=== PATIENT | female | born 1940 | race Caucasian/White ===

== ENCOUNTER 2018-03-08 11:30 | Emergency (ER) | END 2018-03-08 12:18 | disposition home or self-care (01) ==

== ENCOUNTER 2018-04-12 13:04 | Emergency (ER) | END 2018-04-12 16:07 | disposition home or self-care (01) ==

== ENCOUNTER 2018-08-09 19:04 | Emergency (ER) | payer OTHER ==
[~2018-08-09] VITALS: Ht 152.4 cm; Wt 50.3 kg
[~2018-08-09 19:04] MED LIST: ALBU8.5H8 INH; ALPR0.254 PO; AMLO5TAB4 PO; CEPH-443 PO; FAMO20TA18 PO; FLUT16SP17 NASAL; IBUP-1544 PO; PRED20TA PO
[2018-08-09 19:07] VITALS: Ht 152.4 cm; Wt 50.3 kg
[2018-08-09] MEDS ORDERED: SOD CHLORIDE 0.9% 1,000 ML IV STA (19:36)
[2018-08-09] MEDS ORDERED: FAMOTIDINE 20 MG TAB PO STA (19:36)
[2018-08-09] MEDS ORDERED: ONDANSETRON 4 MG INJ IV STA (19:36)
--- NOTE | 2018-08-09 20:52 | ERD ---
ER Documentation Chief Complaint Chief Complaint abdominal pain/diarrhea since yesterday HPI 77-year-old female presenting with complaints of diarrhea for the past 3 days. She also complains of mild epigastric discomfort, though she describes as pressure at times and burning. She does state that she has a lot of acid in her stomach. No bloody stools or melena. No nausea, vomiting, fever, or chills. No recent travel. No recent antibiotic use. Currently she is denying any significant abdominal pain. She is wondering if she needs any antibiotics. Denies any dysuria. She was initially having 6 episodes of diarrhea a day, now she is having about 2. ROS All systems reviewed and are negative except as per history of present illness. Medications Home Meds Active Scripts Famotidine* (Pepcid*) 20 Mg Tablet, 20 MG PO BID for 10 Days, TAB Prov:LINNETTE DONIS MD 08/09/18 Cephalexin* (Keflex*) 500 Mg Capsule, 500 MG PO QID for 5 Days, CAP Prov:AMNA NGUYEN DO 04/12/18 Albuterol Sulfate* (Proair HFA*) 8.5 Gm Hfa.aer.ad, 2 PUFF INH Q4, #1 INHALER Prov:AMNA NGUYEN DO 04/12/18 Prednisone* (Prednisone*) 20 Mg Tab, 60 MG PO DAILY for 5 Days, TAB Prov:AMNA NGUYEN DO 04/12/18 Reported Medications Ibuprofen* (Ibuprofen*) 800 Mg Tablet, 800 MG PO Q8 PRN for NEEDED, TAB 04/12/18 Famotidine* (Famotidine*) 20 Mg Tablet, 20 MG PO BID PRN for NEEDED, #60 TAB 04/12/18 Fluticasone Propionate* (Fluticasone Propionate* Nasal) 50 Mcg/[place] - 16 Gm [place].susp, 1 SPRAY NASAL DAILY, #1 BOTTLE TO EACH NOSTRIL 04/12/18 Alprazolam* (Alprazolam*) 0.25 Mg Tablet, 0.25 MG PO TID PRN for ANXIETY, TAB 04/12/18 Amlodipine Besylate* (Norvasc*) 5 Mg Tablet, 5 MG PO DAILY, TAB 04/12/18 Allergies Allergies: Coded Allergies: ciprofloxacin (Verified Allergy, Severe, 04/12/18) metronidazole (Verified Allergy, Severe, 04/12/18) azithromycin (Verified Allergy, Intermediate, 04/12/18) iodine (Verified Allergy, Intermediate, 04/12/18) sulfamethoxazole (Verified Allergy, Mild, 04/12/18) trimethoprim (Verified Allergy, Mild, 04/12/18) Uncoded Allergies: NITROFURANTOIN MACROCRYSTAL (Allergy, Intermediate, 03/08/18) SHRIMP (Allergy, Mild, ABD PAIN, 06/18/12) PMhx/Soc Medical and Surgical Hx: pt denies Medical Hx, pt denies Surgical Hx History of Surgery: Yes (, CATARACTS BILAT NOVEMBER 2007, UTERINE FIBROID REMOVAL) Anesthesia Reaction: No Hx Neurological Disorder: No Hx Respiratory Disorders: No Hx Cardiac Disorders: Yes (HTN 10 YRS ) Hx Psychiatric Problems: Yes (ANXIETY, DEPRESSION. PO RX, FAM SUPPORT) Hx Miscellaneous Medical Probl: No Hx Alcohol Use: No Hx Substance Use: No Hx Tobacco Use: No Smoking Status: Never smoker FmHx Family History: No diabetes Physical Exam Vitals Vital Signs Date Temp Pulse Resp B/P (MAP) Pulse Ox O2 O2 Flow FiO2 Time Delivery Rate 08/09/18 97.6 88 16 119/64 98 Room Air 21:10 (82) 08/09/18 97.6 88 16 126/74 98 Room Air 20:31 (91) 08/09/18 97.6 80 14 148/78 99 Room Air 19:27 (101) 08/09/18 97.6 97 18 153/72 98 19:07 (99) Physical Exam Const: No acute distress, nontoxic Head: Atraumatic Eyes: Normal Conjunctiva ENT: Normal External Ears, Nose and Mouth. Neck: Full range of motion. No meningismus. Resp: Clear to auscultation bilaterally Cardio: Regular rate and rhythm, no murmurs Abd: Soft, non tender, non distended. No Houston's sign. Negative McBurney's point tenderness. No masses. Normal bowel sounds Skin: No petechiae or rashes Back: No midline or flank tenderness Ext: No cyanosis, or edema Neur: Awake and alert Psych: Normal Mood and Affect Result Diagram: 08/09/18192408/09/181924 Results 24 hrs Laboratory Tests Test 08/09/18 19:25 White Blood Count 6.3 10^3/ul Red Blood Count 3.59 10^6/ul Hemoglobin 11.8 g/dl Hematocrit 33.6 % Mean Corpuscular Volume 93.6 fl Mean Corpuscular Hemoglobin 32.9 pg Mean Corpuscular Hemoglobin Concent 35.1 g/dl Red Cell Distribution Width 12.3 % Platelet Count 236 10^3/UL Mean Platelet Volume 9.1 fl Immature Granulocytes % 0.500 % Nucleated Red Blood Cells % 0.0 /100WBC Immature Granulocytes # 0.030 10^3/ul Sodium Level 136 mmol/L Potassium Level 3.3 mmol/L Chloride Level 93 mmol/L Carbon Dioxide Level 29 mmol/L Anion Gap 14 Blood Urea Nitrogen 25 mg/dl Creatinine 0.91 mg/dl Est Glomerular Filtrat Rate mL/min mL/min Glucose Level 109 mg/dl Calcium Level 10.0 mg/dl Total Bilirubin 1.0 mg/dl Direct Bilirubin 0.00 mg/dl Indirect Bilirubin 1.0 mg/dl Aspartate Amino Transf (AST/SGOT) 288 IU/L Alanine Aminotransferase (ALT/SGPT) 361 IU/L Alkaline Phosphatase 74 IU/L Total Protein 7.9 g/dl Albumin 4.5 g/dl Globulin 3.40 g/dl Albumin/Globulin Ratio 1.32 Lipase 257 U/L Current Medications Medications Dose Sig/Tl Start Time Status Last (Trade) Ordered Route PRN Stop Time Admin Dose Reason Admin Sodium 1,000 ml @ Q1H STAT 08/09/18 DC 08/09/18 Chloride 1,000 mls/hr IV 19:36 08/09/18 19:44 20:35 Ondansetron 4 mg ONCE STAT 08/09/18 DC 08/09/18 HCl (Zofran IV 19:36 08/09/18 19:44 Inj) 19:37 Famotidine 20 mg ONCE STAT 08/09/18 DC 08/09/18 (Pepcid) PO 19:36 08/09/18 19:44 19:37 Procedures/MDM EMERGENT LABS AND DIAGNOSTIC STUDIES: Lab Results above were reviewed and interpreted by me. CBC: No evidence of clinically significant anemia or evidence of infection CMP: Transaminitis, unclear etiology. No evidence of clinically significant electrolyte abnormality, acidosis, renal failure, hypoglycemia Radiology Results as interpreted by Radiology below were reviewed by Jalil Donis MD: Chest x-ray shows no acute abnormalities Initial Nursing notes reviewed. Previous Medical Records requested via the Electronic Health Record. EMERGENCY DEPARTMENT COURSE / MEDICAL DECISION MAKING: Patient is presenting with epigastric abdominal pain and diarrhea for the past 3 days. The pain is intermittent. Her vitals are unremarkable at this time. No evidence of acute surgical abdomen. Labs did show evidence of transaminitis. This may be due to a viral etiology. Doubt acute cholecystitis, chol edocholithiasis, or pancreatitis. She was given Pepcid for her epigastric pain with improvement of her symptoms. I discussed with the patient her lab results. Recommended seeing her primary care doctor within the next 1 week to get repeat blood tests done. She may need further workup for this transaminitis. However this does not need to be done in the ER today and she does not require admission at this time. She was given IV fluids for dehydration. Patient is able to tolerate fluids by mouth. Return precautions were discussed. Patient's blood pressure was elevated (>120/80) but appears stable without evidence of hypertensive emergency or urgency. The patient was counseled about the risks of hypertension and urged to pursue outpatient monitoring and therapy within a week with their primary care physician. Departure Diagnosis: Primary Impression: Abdominal pain Abdominal location: epigastric Qualified Codes: R10.13 - Epigastric pain Additional Impressions: Transaminitis Diarrhea LINNETTE DONIS MD Aug 09, 2018 20:52
[2018-08-09 21:10] VITALS: BP 119/64; PULSE 88; RESP 16
[2018-08-09] MEDS ORDERED: FAMO-96 PO (21:10)
== END 2018-08-09 21:14 | disposition home or self-care (01) ==
LOC: E/R 19:04
DX: R10.13 Epigastric pain (principal); I10 Essential (primary) hypertension; R19.7 Diarrhea, unspecified; R74.0 Nonspecific elevation of levels of transaminase and lactic acid dehydrogenase [LDH]
CPT/HCPCS: 36415; 80053; 83690; 85025; 96374; 99284; J2405; J7030

== ENCOUNTER 2019-03-08 10:29 | Emergency (ER) | payer OTHER ==
[~2019-03-08] VITALS: Ht 152.4 cm; Wt 51.6 kg
[~2019-03-08 10:29] MED LIST changes: +AMOX1TAB10 PO; +FAMO-96 PO; +HYDR-4011 PO; +MELO7.5T38 PO; +NITR-58 PO
[2019-03-08 10:33] VITALS: Ht 152.4 cm; Wt 51.6 kg
== END 2019-03-08 12:25 | disposition home or self-care (01) ==
LOC: FTE 10:29
DX: M19.90 Unspecified osteoarthritis, unspecified site (principal); I10 Essential (primary) hypertension
CPT/HCPCS: 73502; 73510; 73562; 93971